=== PATIENT | female | born 1970 | race Caucasian/White ===

== ENCOUNTER 2021-11-25 21:19 | Emergency (ER) | payer OTHER ==
[2021-11-25] MEDS ORDERED: NS IV 1000 ML 1,000 ML IV STA ×2 (21:31→22:51)
[2021-11-25] MEDS ORDERED: KETOROLAC 30 MG/ML VIAL IVP STA (21:31)
[2021-11-25 21:45] LABS: BASOPHILS # (AUTO) 0.1 10^3/uL (0.0-0.1); BASOPHILS % (AUTO) 0 % (0-10); EOSINOPHILS # (AUTO) 0.2 10^3/uL (0.0-0.3); EOSINOPHILS % (AUTO) 1 % (0-10); HEMATOCRIT 42 % (35-52); HEMOGLOBIN 14.1 g/dL (11.5-16.0); LYMPHOCYTES # (AUTO) 1.6 10^3/uL (1.0-4.0); LYMPHOCYTES % (AUTO) 9 % (12-44); MEAN CORPUSCULAR HEMOGLOBIN 28 pg (25-34); MEAN CORPUSCULAR HGB CONC 34 g/dL (32-36); MEAN CORPUSCULAR VOLUME 84 fL (80-99); MEAN PLATELET VOLUME 10.2 fL (9.0-12.2); MONOCYTES # (AUTO) 1.1 10^3/uL (0.0-1.0); MONOCYTES % (AUTO) 6 % (0-12); NEUTROPHILS # (AUTO) 14.6 10^3/uL (1.8-7.8); NEUTROPHILS % (AUTO) 83 % (42-75); PLATELET COUNT 356 10^3/uL (130-400); WHITE BLOOD COUNT 17.6 10^3/uL (4.3-11.0)
[2021-11-25] MEDS ORDERED: NS 100 ML (IVPB) BAG IV ONE (21:45)
[2021-11-25] MEDS ORDERED: HOLD METFORMIN - RECEIVED CONTRAST 20 ML VIAL IV SCH (21:45)
[2021-11-25] MEDS ORDERED: IOHEXOL 350 MG/ML 100 ML (OMNIPAQUE 350) VIAL IV ONE (21:45)
--- NOTE | 2021-11-25 21:49 | ED General ---
General Stated Complaint: R ARM KNOT/RED STREAKS/PAIN Source of Information: Patient History of Present Illness Date Seen by Provider: Nov 25, 2021 Time Seen by Provider: 21:21 Initial Comments 51-year-old female presenting with pain and swelling under her right armpit. This started last week and she now has redness streaking on her arm. She has subjective fever and chills. She is feeling dizzy and lightheaded and has no appetite. She feels like her heart is racing and has increasing pain. She stat es that she was to see Dr. Briceno on Wednesday about this but because she was feeling so bad tonight she came into the emergency department. She did take Tylenol prior to coming to the emergency department. She denies having problems with swelling in her armpit in the past. Timing/Duration: 5-6 Days Severity: Severe Modifying Factors: worse with Movement Associated Systoms: No Chest Pain, No Cough, No Diaphoresis; Fever/Chills; No Headaches; Loss of Appetite, Malaise; No Nausea/Vomiting, No Rash, No Seizure, No Shortness of Air, No Syncope; Weakness Allergies and Home Medications Allergies Coded Allergies: No Known Drug Allergies (Unverified , 11/25/21) Patient Home Medication List Home Medication List Reviewed: Yes Amoxicillin/Potassium Clav (Amox Tr-K Clv 875-125 mg Tab) 875 Mg-125 Mg Tablet, 1 EACH PO BID Prescribed by: JACQUES BERRY on 11/25/21 2310 Review of Systems Review of Systems Constitutional: chills, dizziness, fever, malaise, weakness EENTM: no symptoms reported Respiratory: no symptoms reported Cardiovascular: palpitations Gastrointestinal: no symptoms reported Genitourinary: no symptoms reported Musculoskeletal: other (pain in right armpit) Skin: change in color (redness and swelling to right armpit) Psychiatric/Neurological: Anxiety Past Hvybcab-Nivzmw-Thqjzj Hx Past Medical History Surgery/Hospitalization HX: Hypothyroid, Depression Physical Exam Vital Signs Vital Signs - First Documented 11/25/21 21:23 Temp 38.2 Pulse 130 Resp 20 B/P (MAP) 141/58 (85) Pulse Ox 96 O2 Delivery Room Air Capillary Refill : Height, Weight, BMI Height: '" Weight: lbs. oz. kg; BMI Method: General Appearance: WD/WN, Anxious, Mild Distress HEENT: PERRL/EOMI, Pharynx Normal Neck: Full Range of Motion, Normal Inspection, Non Tender, Supple Respiratory: Chest Non Tender, Lungs Clear, Normal Breath Sounds, No Accessory Muscle Use, No Respiratory Distress Cardiovascular: Normal Peripheral Pulses, Tachycardia Gastrointestinal: Normal Bowel Sounds, No Pulsatile Mass, Non Tender, Soft Extremity: Normal Capillary Refill, No Pedal Edema, Other (redness and inflammation with tender swollen area in right axilla. Area is indurated without fluctuance or drainage.) Neurologic/Psychiatric: Alert, Oriented x3, corporate pilot II-XII Norm as Tested Skin: Warm/Dry, Erythema (right axilla and upper arm) Focused Exam Lactate Level 11/25/21 21:30: Lactic Acid Level 1.19 Lactic Acid Level Laboratory Tests Test 11/25/21 21:30 Lactic Acid Level 1.19 MMOL/L (0.50-2.00) Progress/Results/Core Measures Suspected Sepsis SIRS Temperature: Pulse: Respiratory Rate: Laboratory Tests 11/25/21 21:30: White Blood Count 17.6H Blood Pressure / Mean: 11/25/21 21:30: Lactic Acid Level 1.19 Laboratory Tests 11/25/21 21:30: Creatinine 0.81, Platelet Count 356, Total Bilirubin 0.4 Results/Orders Lab Results Laboratory Tests Test 11/25/21 21:30 Range/Units White Blood Count 17.6 H 4.3-11.0 10^3/uL Red Blood Count 4.97 3.80-5.11 10^6/uL Hemoglobin 14.1 11.5-16.0 g/dL Hematocrit 42 35-52 % Mean Corpuscular Volume 84 80-99 fL Mean Corpuscular Hemoglobin 28 25-34 pg Mean Corpuscular Hemoglobin Concent 34 32-36 g/dL Red Cell Distribution Width 12.6 10.0-14.5 % Platelet Count 356 130-400 10^3/uL Mean Platelet Volume 10.2 9.0-12.2 fL Immature Granulocyte % (Auto) 0 % Neutrophils (%) (Auto) 83 H 42-75 % Lymphocytes (%) (Auto) 9 L 12-44 % Monocytes (%) (Auto) 6 0-12 % Eosinophils (%) (Auto) 1 0-10 % Basophils (%) (Auto) 0 0-10 % Neutrophils # (Auto) 14.6 H 1.8-7.8 10^3/uL Lymphocytes # (Auto) 1.6 1.0-4.0 10^3/uL Monocytes # (Auto) 1.1 H 0.0-1.0 10^3/uL Eosinophils # (Auto) 0.2 0.0-0.3 10^3/uL Basophils # (Auto) 0.1 0.0-0.1 10^3/uL Immature Granulocyte # (Auto) 0.1 0.0-0.1 10^3/uL Neutrophils % (Manual) 87 % Lymphocytes % (Manual) 9 % Monocytes % (Manual) 3 % Eosinophils % (Manual) 0 % Basophils % (Manual) 0 % Band Neutrophils 1 % Sodium Level 133 L 135-145 MMOL/L Potassium Level 3.8 3.6-5.0 MMOL/L Chloride Level 102 98-107 MMOL/L Carbon Dioxide Level 18 L 21-32 MMOL/L Anion Gap 13 5-14 MMOL/L Blood Urea Nitrogen 10 7-18 MG/DL Creatinine 0.81 0.60-1.30 MG/DL Estimat Glomerular Filtration Rate 88 BUN/Creatinine Ratio 12 Glucose Level 118 H 70-105 MG/DL Lactic Acid Level 1.19 0.50-2.00 MMOL/L Calcium Level 9.5 8.5-10.1 MG/DL Corrected Calcium 9.3 8.5-10.1 MG/DL Total Bilirubin 0.4 0.1-1.0 MG/DL Aspartate Amino Transf (AST/SGOT) 15 5-34 U/L Alanine Aminotransferase (ALT/SGPT) 18 0-55 U/L Alkaline Phosphatase 110 40-136 U/L C-Reactive Protein 13.00 H <0.50 MG/DL Total Protein 7.5 6.4-8.2 GM/DL Albumin 4.2 3.2-4.5 GM/DL My Orders Orders - JACQUES BERRY MD Cbc With Automated Diff (11/25/21 21:29) Comprehensive Metabolic Panel (11/25/21 21:29) Blood Culture (11/25/21 21:29) Ed Iv/Invasive Line Start (11/25/21 21:29) Crp Fs (11/25/21 21:29) Lactic Acid Analyzer (11/25/21 21:29) Ct Chest W (11/25/21 21:29) Ns Iv 1000 Ml (Sodium Chloride 0.9%) (11/25/21 21:31) Ketorolac Injection (Toradol Injection) (11/25/21 21:31) Iohexol Injection (Omnipaque 350 Mg/Ml 1 (11/25/21 21:45) Received Contrast (Hold Metformin- Contr (11/25/21 21:45) Ns (Ivpb) (Sodium Chloride 0.9% Ivpb Bag (11/25/21 21:45) Manual Differential (11/25/21 21:30) Ceftriaxone 1 Gm Pre-Mix (Rocephin 1 Gm (11/25/21 22:51) Ns Iv 1000 Ml (Sodium Chloride 0.9%) (11/25/21 22:51) Medications Given in ED Current Medications Medications Dose Ordered Sig/Zoila Route Start Time Stop Time Status Last Admin Dose Admin Iohexol 100 ml ONCE ONCE IV 11/25/21 21:45 11/25/21 21:46 DC 11/25/21 21:50 75 ML Sodium Chloride 100 ml ONCE ONCE IV 11/25/21 21:45 11/25/21 21:46 DC 11/25/21 21:50 100 ML Vital Signs/I&O 11/25/21 11/25/21 11/25/21 21:23 22:43 23:11 Temp 38.2 36.8 36.8 Pulse 130 92 92 Resp 20 18 18 B/P (MAP) 141/58 (85) 109/54 109/54 Pulse Ox 96 97 97 O2 Delivery Room Air Room Air Room Air 11/26/21 00:00 Intake Total 2050 ml Balance 2050 ml Capillary Refill : Progress Note #1: Progress Note Check labs and cultures as well as lactic acid. CT scan with contrast to evaluate for possible abscess in the right axilla and chest. Give normal saline IV fluid bolus for palpitations and tachycardia. Toradol for pain. Progress Note #2: Progress Note CBC shows elevated white blood cell count to 17.6 thousand with a left shift. Her chemistry panel shows a normal lactic acid and no acute significant normality other than elevated CRP. CT scan shows soft tissue stranding and infection but no definite abscess Progress Note #3: Progress Note Patient is feeling much better after treatment in the ED. Fevers down her heart rate is improved. We will give a second liter of normal saline IV fluid bolus and a gram of Rocephin. Discharged on Augmentin for cellulitis and lymph node swelling in her right axilla. Counseled to keep appointment on Wednesday as scheduled and be seen sooner if she is getting worse. Advised that it will take 24 to 48 hours before she starts to see any improvement and it may get worse before it starts to improve as the antibiotics kick in. Diagnostic Imaging Diagonstic Imaging: CT Plain Films/CT/US/NM/MRI: chest Comments NAME: [facility] REC#: [id number] PT STATUS: REG ER : 1970 PHYSICIAN: JACQUES BERRY MD ADMIT DATE: 11/25/21/ER FS Draft Date of Exam:11/25/21 CT CHEST W PROCEDURE: CT chest with contrast only. TECHNIQUE: Multiple contiguous axial images were obtained through the chest after administration of intravenous contrast. Auto Exposure Controls were utilized during the CT exam to meet ALARA standards for radiation dose reduction. DATE: November 25, 2021. COMPARISON: None. INDICATION: 51-year-old female, right axillary lump and erythema. FINDINGS: There is no identified pulmonary nodule or lung mass. There is no focal airspace consolidation. There is no pneumothorax. There is no pleural effusion. The central airways are patent. The heart is not enlarged. There is no pericardial effusion. There is no identified abnormally enlarged mediastinal, hilar, or axillary lymph node meeting CT size criteria for adenopathy. The gallbladder is surgically absent. There is a 3 mm nonobstructing left renal stone on axial image 169. There is no identified acute bony abnormality. There is subcutaneous edema anterior to the right shoulder and proximal humerus which does extend towards the axilla. There is no identified focal fluid collection or abscess. There is a somewhat prominent right axillary lymph node although with a fatty internal hilum measuring 1.7 cm in short axis on axial image 34. IMPRESSION: CT CHEST. 1. Nonspecific subcutaneous edema anterior to the right shoulder and right proximal humerus extending towards the axilla without identified focal fluid collection or abscess. This potentially could reflect cellulitis in the appropriate clinical scenario. 2. No identified acute cardiopulmonary abnormality. Dictated on workstation # [id number] Dict: 11/25/212215 Trans: 11/25/212221 [facility] [id number] Interpreted by: HUMBERTO RICHARD MD Electronically signed by: Reviewed: Reviewed by Me Departure Impression Primary Impression: Cellulitis of right axilla Additional Impression: Axillary lymphadenopathy Disposition: 01 HOME, SELF-CARE Condition: Stable Departure-Patient Inst. Decision time for Depature: 23:07 Referrals: CORNELIUS BRICENO MD (PCP/Family) Primary Care Physician Patient Instructions: Cellulitis (Skin Infection), Adult ED, Lymphadenitis (DC) Add. Discharge Instructions: Take the full course of antibiotics to treat for skin infection and swollen lymph nodes in the right armpit. May apply warm pack for 5 to 10 minutes every few hours while awake to help with healing and treating the infection. Keep follow-up on Wednesday with Dr. Briceno as scheduled and be seen sooner if you are having worsening symptoms. Please note that we will take a minimum of 36 to 48 hours before the antibiotics start to improve the infection. Consider adding an ibuprofen or naproxen as an anti-inflammatory to help with pain and inflammation. This will also help with your fever and you could take Tylenol in addition if needed for pain. Scripts Amoxicillin/Potassium Clav (Amox Tr-K Clv 875-125 mg Tab) 875 Mg-125 Mg Tablet 1 EACH PO BID for cellulitis for 10 Days, #20 TAB 0 Refills Prov: JACQUES BERRY MD 11/25/21 JACQUES BERRY MD Nov 25, 2021 21:38
[2021-11-25 22:04] LABS: ALBUMIN 4.2 GM/DL (3.2-4.5); BILIRUBIN,TOTAL 0.4 MG/DL (0.1-1.0); CALCIUM 9.5 MG/DL (8.5-10.1); CREATININE SERUM 0.81 MG/DL (0.60-1.30); POTASSIUM 3.8 MMOL/L (3.6-5.0); TOTAL PROTEIN 7.5 GM/DL (6.4-8.2)
[2021-11-25 22:05] LABS: BAND NEUTROPHILS 1 %; BASOPHILS % (MANUAL) 0 %; EOSINOPHILS % (MANUAL) 0 %; LYMPHOCYTES % (MANUAL) 9 %; MONOCYTES % (MANUAL) 3 %; NEUTROPHILS % (MANUAL) 87 %
--- NOTE | 2021-11-25 22:23 | Diagnostic Imaging Report ---
PROCEDURE: CT chest with contrast only. TECHNIQUE: Multiple contiguous axial images were obtained through the chest after administration of intravenous contrast. Auto Exposure Controls were utilized during the CT exam to meet ALARA standards for radiation dose reduction. DATE: November 25, 2021. COMPARISON: None. INDICATION: 51-year-old female, right axillary lump and erythema. FINDINGS: There is no identified pulmonary nodule or lung mass. There is no focal airspace consolidation. There is no pneumothorax. There is no pleural effusion. The central airways are patent. The heart is not enlarged. There is no pericardial effusion. There is no identified abnormally enlarged mediastinal, hilar, or axillary lymph node meeting CT size criteria for adenopathy. The gallbladder is surgically absent. There is a 3 mm nonobstructing left renal stone on axial image 169. There is no identified acute bony abnormality. There is subcutaneous edema anterior to the right shoulder and proximal humerus which does extend towards the axilla. There is no identified focal fluid collection or abscess. There is a somewhat prominent right axillary lymph node although with a fatty internal hilum measuring 1.7 cm in short axis on axial image 34. IMPRESSION: CT CHEST. 1. Nonspecific subcutaneous edema anterior to the right shoulder and right proximal humerus extending towards the axilla without identified focal fluid collection or abscess. This potentially could reflect cellulitis in the appropriate clinical scenario. 2. No identified acute cardiopulmonary abnormality. Dictated by: Dictated on workstation # [id number]
[2021-11-25] MEDS ORDERED: cefTRIAXone 1 GM PRE-MIX 50 ML IV STA (22:51)
[2021-11-25] MEDS ORDERED: AMOX1TAB12 PO (23:10)
[2021-11-25 23:11] VITALS: BP 109/54
== END 2021-11-25 23:45 | disposition home or self-care (01) ==
LOC: ER FS 21:21
DX: L03.111 Cellulitis of right axilla (principal); R59.0 Localized enlarged lymph nodes; D72.829 Elevated white blood cell count, unspecified; R79.82 Elevated C-reactive protein (CRP); R00.0 Tachycardia, unspecified
CPT/HCPCS: 36415; 71260; 80053; 83605; 85007; 85027; 86141; 87040; Q9967